=== PATIENT | female | born 1965 | race Caucasian/White ===

== ENCOUNTER 2016-12-02 13:00 | Emergency (ER) | payer OTHER ==
[~2016-12-02] VITALS: Ht 170.2 cm; Wt 120.5 kg
[~2016-12-02 13:00] MED LIST: ALPRAZOLAM1 MG PO; BAYER CHEWABLE81 MG PO; CITALOPRAM HBR20 MG PO; LISINOPRIL-HCT1 EACH PO; METHADONE H5 MG/5 ML PO; MOTRIN800 MG PO; NAPROSYN500 MG PO; ONDANSETRON HCL4 MG PO; PREDNISONE10 MG PO; PROMETHAZINE HC25 M1 PO; QUETIAPINE FUM200 MG PO; SKELAXIN800 MG PO; XANAX1 MG PO; methadone PO
[2016-12-02 17:34] LABS: HEMATOCRIT 50.1 % (36.0-46.0); MCH 29.2 PG (29.0-34.0); MCHC 34.3 G/DL (30.0-36.0); MCV 84.9 FL (83-99); MEAN PLAT.VOLUME 9.7 uM^3 (9.5-12.4); PLATELET COUNT 240 K/uL (156-360); RBC DIS.WIDTH-CV 13.4 % (11.8-14.6); RBC DIS.WIDTH-SD 41.6 % (39-53); WHITE BLOOD COUNT 13.7 K/uL (4.1-10.2)
[2016-12-02 17:45] LABS: CHLORIDE 101 mEq/L (99-109); POTASSIUM 3.7 mEq/L (3.7-5.4); SODIUM 139 mEq/L (136-147)
[2016-12-02 17:47] LABS: GLUCOSE 141 mg/dL (70-99)
[2016-12-02 17:48] LABS: ANION GAP 15 MEQ/L (2-14)
[2016-12-02 17:51] LABS: GFR ESTIMATE (CALCULATED) > 59 mL/min/
[2016-12-02 17:52] LABS: UREA NITROGEN (BUN) 12 mg/dL (9-23)
[2016-12-02] MEDS ORDERED: XANAX1 MG PO (21:34)
[2016-12-02 22:11] VITALS: BP 120/85
== END 2016-12-02 22:12 | disposition home or self-care (01) ==
LOC: EME 13:00
PROVIDERS: Emergency Medicine
DX: T40.3X6A Underdosing of methadone, initial encounter (principal); T42.4X6A Underdosing of benzodiazepines, initial encounter; Z91.138 Patient's unintentional underdosing of medication regimen for other reason; F32.9 Major depressive disorder, single episode, unspecified; F41.9 Anxiety disorder, unspecified; G89.29 Other chronic pain
CPT/HCPCS: 70450; 80048; 85027; 99281; 99285; J2405; J7030